=== PATIENT | male | born 1985 | race Caucasian/White ===

== ENCOUNTER 2018-11-29 15:27 | Emergency (ER) | payer MEDICAID ==
[2018-11-29 15:37] VITALS: PULSE 70; TEMP 97.6
[2018-11-29] MEDS ORDERED: Sodium Chloride 0.9% 1,000 ML IV ONE (15:54)
[2018-11-29] MEDS ORDERED: Sodium Chloride 0.9% 1,000 ML ONE (16:11)
--- NOTE | 2018-11-29 16:17 | C.PDOC ---
History Of Present Illness 33 years old male with PMHx of Kidney stones(5-6 months ago) presents to ED for complaints of LLQ abdominal pain that began last night. Patient reports pain gradually worsened since 5AM today this morning. Denies fever, cough, bodyaches, nausea, vomiting, or shortness of breath. Time Seen by Provider: 11/29/18 15:45 Chief Complaint (Nursing): Abdominal Pain History Per: Patient History/Exam Limitations: no limitations Onset/Duration Of Symptoms: Hrs Current Symptoms Are (Timing): Still Present Location Of Pain/Discomfort: LLQ Radiation Of Pain To:: None Quality Of Discomfort: "Pain" Associated Symptoms: denies: Fever, Chills, Nausea, Vomiting, Diarrhea Exacerbating Factors: None Alleviating Factors: None Last Bowel Movement: Today Recent travel outside of the [place]: No Past Medical History Reviewed: Historical Data, Nursing Documentation, Vital Signs Vital Signs: Last Vital Signs Temp 97.6 F 11/29/18 15:32 Pulse 70 11/29/18 15:32 Resp 20 11/29/18 15:32 BP 135/90 11/29/18 15:32 Pulse Ox 99 11/29/18 15:32 - Medical History PMH: Kidney Stones Surgical History: No Surg Hx Family History: States: No Known Family Hx - Social History Hx Alcohol Use: No Hx Substance Use: No - Immunization History Hx Tetanus Toxoid Vaccination: No Hx Influenza Vaccination: No Hx Pneumococcal Vaccination: No Review Of Systems Except As Marked, All Systems Reviewed And Found Negative. Constitutional: Negative for: Fever, Chills Gastrointestinal: Positive for: Abdominal Pain (LLQ ). Negative for: Nausea, Vomiting, Diarrhea Skin: Negative for: Rash Neurological: Negative for: Weakness, Numbness Physical Exam - Physical Exam Appears: Non-toxic, No Acute Distress Skin: Normal Color, Warm, Dry, No Rash Head: Atraumatic, Normacephalic Eye(s): bilateral: Normal Inspection, PERRL, EOMI Oral Mucosa: Moist Neck: Normal ROM, Supple Chest: Symmetrical, No Tenderness Cardiovascular: Rhythm Regular, No Murmur Respiratory: Normal Breath Sounds, No Rales, No Rhonchi, No Wheezing Gastrointestinal/Abdominal: Soft, Tenderness (LLQ) Back: Normal Inspection, No Vertebral Tenderness Extremity: Normal ROM Extremity: Bilateral: Atraumatic, Normal Color And Temperature, Normal ROM Pulses: Left Radial: Normal, Right Radial: Normal Neurological/Psych: Oriented x3, Normal Speech Gait: Steady ED Course And Treatment O2 Sat by Pulse Oximetry: 99 (RA) Pulse Ox Interpretation: Normal - Other Rad Abdomen Obstructive X-Ray X-Ray: Viewed By Me, Read By Radiologist Interpretation: IMPRESSION: Mild constipation, otherwise radiographs of chest and abdomen. No evidence of mechanical bowel obstruction. Residual contrast or high density stool noted in the right colon and in the rectum. - CT Scan/US Abdomen/Pelvis CT Other Rad Studies (CT/US): Read By Radiologist, Radiology Report Reviewed CT/US Interpretation: IMPRESSION: Bilateral nonobstructing renal calculi. Mild left hydronephrosis and hydroureter up to 4 millimeter calculus at the mid to distal left ureter. Large bowel wall thickening versus incomplete distention. Residual oral contrast in the large bowel. Upper normal limits size of the appendix without evidence of adjacent inflammatory changes. Possible gallbladder sludge without evidence of acute cholecystitis. Medical Decision Making Medical Decision Making: Plan: * Motrin * Toradol * CT Abd/Pelvis * X-Ray obstructive * Urinalysis Disposition Counseled Patient/Family Regarding: Studies Performed, Diagnosis, Need For Followup, Rx Given - Disposition Referrals: Romeo Damon MD [Staff Provider] - [facility] [Outside] Disposition: HOME/ ROUTINE Disposition Time: 18:44 Condition: STABLE Additional Instructions: Take pain medications as needed. Take Flomax once a day. Use Miralax and Benefiber for constipation. Use magnesium Citrate for constipation. Drink a lot of water with this. Follow up with the Urologists and the clinic. Return to the Emergency Department with any further concerns. Prescriptions: Ibuprofen [Motrin] 600 mg PO TID #15 tab Magnesium Citrate [Citrate of Mag] 300 ml PO DAILY #2 bottle Polyethylene Glycol 3350 [Miralax] 1 packet PO DAILY #30 powd.pack Tamsulosin HCl [Flomax] 0.4 mg PO DAILY #5 cap.er.24h Wheat Dextrin [Benefiber] 1 each PO DAILY #30 powd.pack Instructions: Renal Colic (DC), Constipation, Adult (DC) Forms: [facility] (Hungarian), General Discharge Instructions - POA Present On Arrival: None - Clinical Impression Clinical Impression: Renal colic on left side, Constipation - Scribe Statement The provider has reviewed the documentation as recorded by the Jessicaibomar Ortiz All medical record entries made by the Jessicaibomar were at my direction and personally dictated by me. I have reviewed the chart and agree that the record accurately reflects my personal performance of the history, physical exam, me dical decision making, and the department course for this patient. I have also personally directed, reviewed, and agree with the discharge instructions and disposition.
--- NOTE | 2018-11-29 16:27 | RAD ---
Date of service: 11/29/2018 PROCEDURE: Radiographs of the chest and abdomen (obstructive series) HISTORY: abd pain COMPARISON: No prior. TECHNIQUE: AP radiograph of the chest, with upright and supine radiographs of the abdomen. 3 views obtained. FINDINGS: CHEST: Lungs: Clear. Cardiovascular: Normal size heart. No pulmonary vascular congestion. No aortic atherosclerotic calcification present Pleura: No pleural fluid. No pneumothorax. Other findings: None. ABDOMEN AND PELVIS: Bowel: There is a high density stool or residual contrast noted in the rectum and to less degree in the ascending colon. Otherwise unremarkable bowel gas pattern. No evidence of mechanical obstruction. Free air: None. Bones: Unremarkable. Other findings: None. IMPRESSION: Mild constipation, otherwise radiographs of chest and abdomen. No evidence of mechanical bowel obstruction. Residual contrast or high density stool noted in the right colon and in the rectum.
[2018-11-29 16:53] LABS: URINE BILIRUBIN NEGATIVE (NEGATIVE); URINE BLOOD NEGATIVE (NEGATIVE); URINE CLARITY Clear (Clear); URINE COLOR Yellow (YELLOW); URINE GLUCOSE (UA) NORMAL (Normal); URINE LEUKOCYTE ESTERASE NEG Leu/uL (Negative); URINE PROTEIN NEGATIVE (NEGATIVE); URINE UROBILINOGEN NORMAL mg/dL (0.2-1.0)
--- NOTE | 2018-11-29 17:00 | CT ---
Date of service: 11/29/2018 PROCEDURE: CT Abdomen and Pelvis without intravenous contrast HISTORY: abd pain COMPARISON: Comparison is made to the previous x-ray of the abdomen. TECHNIQUE: Axial and reformatted coronal and sagittal CT images of the abdomen were obtained without IV or oral contrast administration.. Contrast dose: 0 Radiation dose: Total exam DLP = 448.35 mGy-cm. This CT exam was performed using one or more of the following dose reduction techniques: Automated exposure control, adjustment of the mA and/or kV according to patient size, and/or use of iterative reconstruction technique. FINDINGS: LOWER THORAX: Mild bibasilar atelectasis. LIVER: Mild hepatomegaly with findings suggestive of mild hepatic steatosis. GALLBLADDER AND BILE DUCTS: Possible sludge or small gallstones. No evidence of acute cholecystitis. PANCREAS: Unremarkable. No gross lesion or ductal dilatation. SPLEEN: Unremarkable. ADRENALS: Unremarkable. No mass. KIDNEYS AND URETERS: There are bilateral nonobstructing renal calculi and/or pyramids calcification noted. There is mild left hydronephrosis and hydroureter up to 4 millimeter calculus at the mid to distal left ureter. No evidence of right hydronephrosis. VASCULATURE: Unremarkable. No aortic aneurysm. No aortic atherosclerotic calcification or mural plaque present. BOWEL: Mild large bowel wall thickening versus incomplete distention. Residual oral contrast seen in the large bowel up to the rectum. Evidence of bowel obstruction. APPENDIX: The appendix appears prominent in size measures upper normal limits, 8 millimeter in transverse diameter. No evidence of significant inflammatory changes adjacent to the appendix. PERITONEUM: Unremarkable. No free fluid. No free air. LYMPH NODES: Unremarkable. No enlarged lymph nodes. BLADDER: Unremarkable. REPRODUCTIVE: Unremarkable. BONES: No acute fracture. OTHER FINDINGS: None. IMPRESSION: Bilateral nonobstructing renal calculi. Mild left hydronephrosis and hydroureter up to 4 millimeter calculus at the mid to distal left ureter. Large bowel wall thickening versus incomplete distention. Residual oral contrast in the large bowel. Upper normal limits size of the appendix without evidence of adjacent inflammatory changes. Possible gallbladder sludge without evidence of acute cholecystitis.
[2018-11-29] MEDS ORDERED: Lidocaine 116 MG in Sodium Chloride 0.9% 100 ML IV STA (17:16)
[2018-11-29 19:12] VITALS: BP 106/77; RESP 17; O2SAT 98
== END 2018-11-29 19:12 | disposition home or self-care (01) ==
LOC: C.ER 15:27
DX: N23 Unspecified renal colic (principal); K59.00 Constipation, unspecified
CPT/HCPCS: 74022; 74176; 81001; 96360; 99285; J2001; J7030